=== PATIENT | male | born 2000 ===

== ENCOUNTER 2022-10-31 01:10 | Emergency (ER) | payer OTHER ==
[2022-10-31 01:57] LABS: Potassium 3.4 mEq/L (3.5-5.1)
[2022-10-31 01:58] LABS: Absolute Lymphocytes (CBC) 1.4 K/uL (0.7-4.9); Hematocrit 44.9 % (39.6-49.0); Lymphocytes % 9.5 % (15.3-44.8); MCV 87.7 fL (80-100); MPV 8.1 fL (7.6-11.3); Platelets 267 thou/uL (152-406); RBC Red Blood Cell Count 5.11 M/uL (4.33-5.43)
[2022-10-31 02:00] LABS: Protime INR 1.19
[2022-10-31] MEDS ORDERED: NA CHLORIDE 0.9% 1,000 ML ONE (02:47)
[2022-10-31] MEDS ORDERED: CEFAZOLIN SODIUM 1 GM/VIAL ONE (02:48)
[2022-10-31] MEDS ORDERED: NA CHLORIDE 0.9% 100 ML ONE (02:49)
[2022-10-31] MEDS ORDERED: MORPHINE 4 MG/ML SYR ONE ×3 (02:49→08:20)
[2022-10-31] MEDS ORDERED: KETOROLAC 30 MG/ML INJ ONE (02:49)
[2022-10-31] MEDS ORDERED: ONDANSETRON 4 MG/2 ML VIAL ONE (02:49)
--- NOTE | 2022-10-31 04:24 | EDPHYS ---
Physician Documentation [facility] Name: Nirmal Guan Age: 22 yrs Sex: Male : 2000 Arrival Date: 10/31/2022 Time: 01:10 Bed 3 Private MD: ED Physician Krunal Coello HPI: 10/31 01:17 This 22 yrs old [place] Male presents to ER via Unassigned with complaints of left sp4 facial injury . 04:07 , Patient is a 22-year-old inmate who presents with escort from the halfway, [facility] sp4 unit, for acute facial injury. Patient states he was heard at 6 PM. Patient states that he fell down onto the floor causing injury to his left side of the face with now left mandibular area swelling. Patient reported positive loss of consciousness with his injury. . Historical: - Allergies: 01:34 No Known Allergies; kl - Home Meds: :34 None [Active]; kl - PMHx: 03:01 None; kl - PSHx: :34 None; kl - Immunization history:: Adult Immunizations up to date. - Social history:: Smoking status: Patient denies any tobacco usage or history of. - Family history:: not pertinent. ROS: 04:07 Constitutional: Negative for fever, chills, and weight loss, ENT: Positive left-sided sp4 facial injury, positive left-sided facial swelling, positive fall and facial contusion 04:07 All other systems are negative. Exam: 04:07 Constitutional: This is a well developed, well nourished patient who is awake, alert, sp4 and in no acute distress. Head/Face: Normocephalic, signs of facial contusion and mandibular injury left side left angle of the mandible. Significant left lower facial swelling and associated hematoma. Eyes: Pupils equal round and reactive to light, extra-ocular motions intact. Lids and lashes normal. Conjunctiva and sclera are not injected. Cornea within normal limits. Periorbital areas with no swelling, redness, or edema. ENT: Nares patent. No nasal discharge, no septal abnormalities noted. Tympanic membranes are normal and external auditory canals are clear. Positive trismus, positive left sided mandibular swelling, difficulty opening mouth, no oral bleeding, no oral ulcers, no dental avulsion. Neck: Trachea midline, no thyromegaly or masses palpated, and no cervical lymphadenopathy. Supple, full range of motion without nuchal rigidity, or vertebral point tenderness. Chest/axilla: Normal chest wall appearance and motion. Nontender with no deformity. No lesions are appreciated. Cardiovascular: Regular rate and rhythm with a normal S1 and S2. No gallops, murmurs, or rubs. Normal PMI, no JVD. No pulse deficits. Respiratory: Lungs have equal breath sounds bilaterally, clear to auscultation and percussion. No rales, rhonchi or wheezes noted. No increased work of breathing, no retractions or nasal flaring. Abdomen/GI: Soft, non-tender, with normal bowel sounds. No distension or tympany. No guarding or rebound. No evidence of tenderness throughout. Back: No spinal tenderness. No costovertebral tenderness. Skin: Warm, dry with normal turgor. Normal color with no rashes, no lesions, and no evidence of cellulitis. MS/ Extremity: Pulses equal, no cyanosis. Neurovascular intact. Full, normal range of motion. Neuro: Awake and alert, GCS 15, oriented to person, place, time, and situation. Cranial nerves II-XII grossly intact. Motor strength 5/5 in all extremities. Sensory grossly intact. Psych: Awake, alert, with orientation to person, place and time. Behavior, mood, and affect are within normal limits Vital Signs: 02:49 BP 154 / 93; Pulse 78; Resp 16; Pulse Ox 100% on R/A; kl 03:01 BP 135 / 87; kl 03:02 Weight 79.38 kg (M); Height 5 ft. 7 in. ; kl 05:17 BP 138 / 85; Pulse 71; Resp 18; Pulse Ox 98% on R/A; kl 06:11 Temp 98.2; kl 06:33 BP 123 / 78; Pulse 70; Resp 16; Pulse Ox 99% on R/A; kl 07:45 BP 144 / 88; Pulse 72; Resp 18; Temp 97.2; Pulse Ox 98% on R/A; ph 03:02 Body Mass Index 27.41 (79.38 kg, 170.18 cm) kl MDM: 02:59 Patient medically screened. sp4 03:45 ED course: C spine - EXAM DESCRIPTION: C Spine Single View CLINICAL HISTORY: PAIN sp4 TECHNIQUE: 1 views of the cervical spine were submitted. COMPARISON: None available for comparison FINDINGS: Vertebra: No evidence of acute cervical spine fracture or malalignment Disc spaces: Well-maintained Prevertebral soft tissues: Unremarkable IMPRESSION: No evidence of acute cervical spine pathology on the single lateral view obtained.. ED course: CT reports - IMPRESSION: No evidence for acute hemorrhage, infarct or mass effect. No evidence for acute fracture or subluxation of the cervical spine. Incidentally noted the presence of a fracture involving the anterior right side of the mandible as well as the left mandibular angle with associated gas/air along the left client solutions manager space within the area of fracture. . ED course: CT head / C spine - FINDINGS: Multiple transaxial tomograms of the brain were obtained from the base of the skull to the vertex without contrast. 2-D multiplanar reformats and the coronal and sagittal plane were performed and reviewed. Multiple axial CT images through the cervical spine were obtained at 2 mm slice thickness at 2 mm interval reconstruction. In addition 2-D multiplanar reformats and the sagittal coronal plane were performed and reviewed. This exam was performed according to our departmental dose-optimization protocol, which includes automated exposure control, adjustment of the mA and/or kV according to patient size and/or use of iterative reconstruction technique. CT head: Brain parenchyma as well as the hood and white matter differentiation demonstrate to be unremarkable. There is no midline shift and/or mass effect. There is no evidence for acute hemorrhage. There are no focal areas of hypodensities. Lateral ventricles and cisterns displace normal appearance. No intra or extra axial fluid collections were seen. The calvarium is intact with no evidence for fracture. The visualized portions of the paranasal sinuses and orbits demonstrate to be clear. CT C-spine: The alignment, vertebral body heights, and disc spaces are normal. There is no evidence of fracture or subluxation. There are no significant degenerative changes. The spinal canal demonstrate no evidence for significant stenosis. Neural foramina demonstrate to be unremarkable. The uncovertebral joints demonstrate to be normal. There is no prevertebral soft tissue swelling. Sagittal coronal reformatted images demonstrate no subluxation or bony abnormalities. Incidentally is noted the presence of a fracture involving the anterior right side of the mandible as well as the left mandibular angle with associated gas/air along the left client solutions manager space within the area of fracture. IMPRESSION: No evidence for acute hemorrhage, infarct or mass effect. No evidence for acute fracture or subluxation of the cervical spine. Incidentally noted the presence of a fracture involving the anterior right side of the mandible as well as the left mandibular angle with associated gas/air along the left client solutions manager space within the area of fracture.. ED course: CT facial bones - FINDINGS: There is acute nondisplaced fracture anterior right side mandible as well as left mandibular angle fracture with associated to adjacent gas-air along the left client solutions manager space. There is associated soft tissue swelling. There is a nondisplaced bilateral nasal bone fracture. The temporomandibular joint, zygomatic bones, orbital fernandez, paranasal sinuses demonstrate to be within normal limits. The globe, intraconal elements and extraconal elements demonstrate to be unremarkable. Superior medial and inferior turbinates are grossly unremarkable. Nasopharynx and oropharynx demonstrate clear. No focal masses were demonstrated. The rest of the soft tissue and bony structures are grossly unremarkable. IMPRESSION: Acute nondisplaced fracture anterior right side mandible as well as left mandibular angle fracture with associated to adjacent gas-air along the left client solutions manager space. Nondisplaced nasal bone fracture. . 04:07 Differential Diagnosis altered mental status, Concussion, closed head injury, facial sp4 fractures, nasal fractures, mandibular fractures, [place] injury. Data reviewed: vital signs, nurses notes, EMS record, lab test result(s), radiologic studies, CT scan, plain films. Consideration of Admission/Observation Escalation of care including admission/observation considered. Management of patient was discussed with the following: Glass Inspector: OMFS. ED course: CT revealed nondisplaced fracture right anterior mandible as well as left mandibular angle fracture with soft tissue swelling and air in the soft tissues. Also nondisplaced bilateral nasal bone fractures. Complex mandibular fracture requires OMFS attention. Will discuss patient with OMFS at [facility] for possible transfer.. . 05:52 ED course: Patient was discussed with OMFS Dr. Capone who has accepted patient for sp4 evaluation.. 10/31 01:18 Order name: Basic Metabolic Panel; Complete Time: 03:45 sp4 10/31 01:18 Order name: CBC with Diff; Complete Time: 03:45 sp4 10/31 01:18 Order name: Type And Screen; Complete Time: 05:50 sp4 08/15 01:22 Order name: PT-INR; Complete Time: 03:45 sp4 10/31 01:18 Order name: XRAY C Spine Single View sp4 10/31 01:21 Order name: CT Head C Spine sp4 10/31 01:21 Order name: CT Facial Bones W/ Con \T\ Mpr sp4 10/31 01:18 Order name: Labs collected and sent; Complete Time: 08:01 sp4 10/31 01:22 Order name: Saline Lock; Complete Time: 02:03 sp4 Administered Medications: 02:48 Drug: NS 0.9% IV 1000 ml Route: IV; Rate: 1 bolus; Site: left forearm; kl 02:48 Drug: Ondansetron IVP 4 mg Route: IVP; Site: left forearm; kl 05:18 Follow up: Response: No adverse reaction kl 02:48 Drug: ceFAZolin IVPB 1 grams Volume: 50 ml; Route: IVPB; Infused Over: 30 mins; Site: kl left forearm; 02:48 Not Given (up to datee): Tetanus-Diphtheria Toxoid IM Adult 0.5 ml IM once; Provide kl Vaccine Information Statement (VIS). 02:49 Drug: Ketorolac IVP 30 mg Route: IVP; Site: left forearm; kl 05:18 Follow up: Response: No adverse reaction kl 02:49 Drug: morphine IVP or IV 4 mg Route: IVP; Infused Over: 4 mins; Site: left forearm; kl 05:18 Follow up: Response: No adverse reaction kl 04:48 CANCELLED (Duplicate Order): morphine IVP or IV 4 mg IVP once over 4 mins kl 04:50 Drug: morphine IVP or IV 4 mg Route: IVP; Infused Over: 4 mins; Site: left forearm; kl 05:17 Follow up: Response: No adverse reaction; Marked relief of symptoms kl 08:13 Drug: morphine IVP or IV 4 mg Route: IVP; Infused Over: 4 mins; Site: left forearm; ph 08:14 Follow up: Response: No adverse reaction; RASS: Drowsy (-1) ph Disposition Summary: 10/31/22 04:24 Transfer Ordered Transfer Location: [facility] sp4 Reason: Higher level of care sp4 Condition: Fair sp4 Problem: new sp4 Symptoms: are unchanged sp4 Accepting Physician: JENNA at [facility] , Dr. Capone (10/31/22 08:15) ph Diagnosis - Fracture of mandible sp4 - Fracture of nasal bones sp4 - Acute right anterior mandible fracture, acute left mandibular angle fracture, sp4 bilateral nondisplaced nasal bone fractures, facial injury with concussion Forms: - Medication Reconciliation Form sp4 - SBAR form sp4 Signatures: Dispatcher [employer] EDMS Tiki Cross RN RN kl Waters, Shelly, TOP LIFT TRIMMER-C TOP LIFT TRIMMER-Ryanw Lala Barraza RN RN Krunal Coello MD MD sp4 Corrections: (The following items were deleted from the chart) 04:48 04:48 morphine IVP or IV 4 mg IVP once over 4 mins ordered. ceferino de la vega 05:53 04:24 OMFS at [facility] sp4 sp4 08:15 05:53 [facility]FS at [facility] , Dr. Capone sp4 ph
--- NOTE | 2022-10-31 04:24 | ER ---
Nurse's Notes [facility] Name: Nirmal Guan Age: 22 yrs Sex: Male : 2000 Arrival Date: 10/31/2022 Time: 01:10 Bed 3 Private MD: Diagnosis: Fracture of mandible;Fracture of nasal bones;Acute right anterior mandible fracture, acute left mandibular angle fracture, bilateral nondisplaced nasal bone fractures, facial injury with concussion Presentation: 10/31 01:30 Chief complaint: Patient states: left jaw pain s/p fall. Coronavirus screen: Vaccine kl status: Patient reports receiving the 2nd dose of the covid vaccine. Ebola Screen: Patient negative for fever greater than or equal to 101.5 degrees Fahrenheit, and additional compatible Ebola Virus Disease symptoms. Initial Sepsis Screen: Does the patient meet any 2 criteria? No. Patient's initial sepsis screen is negative. Does the patient have a suspected source of infection? No. Patient's initial sepsis screen is negative. Risk Assessment: Do you want to hurt yourself or someone else? Patient reports no desire to harm self or others. 01:30 Method Of Arrival: Law Enforcement: [place] [employer] Corrections 01:30 Acuity: BELA 3 kl Historical: - Allergies: :34 No Known Allergies; kl - Home Meds: :34 None [Active]; kl - PMHx: 03:01 None; kl - PSHx: 01:34 None; kl - Immunization history:: Adult Immunizations up to date. - Social history:: Smoking status: Patient denies any tobacco usage or history of. - Family history:: not pertinent. Screenin:34 [facility] ED Fall Risk Assessment (Adult) History of falling in the last 3 months, kl including since admission Yes- single mechanical fall (1 pt) Confusion or Disorientation No (0 pts) Intoxicated or Sedated No (0 pts) Impaired Gait No (0 pts) Mobility Assist Device Used No (0 pt) Altered Elimination No (0 pt) Score/Fall Risk Level 0 - 2 = Low Risk Oriented to surroundings, Maintained a safe environment. Abuse screen: Denies threats or abuse. Nutritional screening: No deficits noted. Tuberculosis screening: No symptoms or risk factors identified. Assessment: :15 General: Appears uncomfortable, Behavior is calm, cooperative. Pain: Complains of pain kl in left jaw Pain currently is 7 out of 10 on a pain scale. Quality of pain is described as aching, dull, Pain began Is. Neuro: No deficits noted. Cardiovascular: No deficits noted. Respiratory: No deficits noted. GI: No deficits noted. No signs and/or symptoms were reported involving the gastrointestinal system. : No deficits noted. No signs and/or symptoms were reported regarding the genitourinary system. EENT: Musculoskeletal: Swelling present in left jaw teeth misaligned. 01:35 Reassessment: pt reports fell and possible LOC no other injuries noted. kl 02:49 Reassessment: Patient appears in no apparent distress at this time. Patient and/or kl family updated on plan of care and expected duration. Pain level reassessed. Patient is alert, oriented x 3, equal unlabored respirations, skin warm/dry/pink. 07:16 Reassessment: Patient appears in no apparent distress at this time. No changes from ko1 previously documented assessment. Patient and/or family updated on plan of care and expected duration. Pain level reassessed. Vital Signs: 02:49 BP 154 / 93; Pulse 78; Resp 16; Pulse Ox 100% on R/A; kl 03:01 BP 135 / 87; kl 03:02 Weight 79.38 kg (M); Height 5 ft. 7 in. ; kl 05:17 BP 138 / 85; Pulse 71; Resp 18; Pulse Ox 98% on R/A; kl 06:11 Temp 98.2; kl 06:33 BP 123 / 78; Pulse 70; Resp 16; Pulse Ox 99% on R/A; kl 07:45 BP 144 / 88; Pulse 72; Resp 18; Temp 97.2; Pulse Ox 98% on R/A; ph 03:02 Body Mass Index 27.41 (79.38 kg, 170.18 cm) ED Course: 01:13 Patient arrived in ED. rv1 01:17 Krunal Coello MD is Attending Physician. sp4 01:35 Patient has correct armband on for positive identification. Bed in low position. Side kl rails up X2. 01:35 Inserted saline lock: 20 gauge in left forearm, using aseptic technique. Blood kl collected. 01:43 XRAY C Spine Single View In Process Unspecified. EDMS 02:00 CT Head C Spine In Process Unspecified. EDMS 02:01 CT Facial Bones W/ Con \T\ Mpr In Process Unspecified. EDMS 04:47 Initiated transfer with Kyrie at [facility]. rv1 05:17 No apparent distress. Resting quietly. Appears to be sleeping. kl 05:55 Pt accepted to [facility] by Dr. Hammond. rv1 06:34 Triage completed. kl 06:35 Komal from [facility] transportation called and gave ETA for [facility] 1 hour and 30 rv1 minutes. 07:01 Yohana Hartmann, RN is Primary Nurse. ko1 07:15 Provided Education on: NA. ko1 07:15 No provider procedures requiring assistance completed. ko1 08:13 Arm band placed on. ph 08:14 Patient transferred, IV remains in place. ph Administered Medications: 02:48 Drug: NS 0.9% IV 1000 ml Route: IV; Rate: 1 bolus; Site: left forearm; kl 02:48 Drug: Ondansetron IVP 4 mg Route: IVP; Site: left forearm; kl 05:18 Follow up: Response: No adverse reaction kl 02:48 Drug: ceFAZolin IVPB 1 grams Volume: 50 ml; Route: IVPB; Infused Over: 30 mins; Site: kl left forearm; 02:48 Not Given (up to datee): Tetanus-Diphtheria Toxoid IM Adult 0.5 ml IM once; Provide kl Vaccine Information Statement (VIS). 02:49 Drug: Ketorolac IVP 30 mg Route: IVP; Site: left forearm; kl 05:18 Follow up: Response: No adverse reaction kl 02:49 Drug: morphine IVP or IV 4 mg Route: IVP; Infused Over: 4 mins; Site: left forearm; kl 05:18 Follow up: Response: No adverse reaction kl 04:48 CANCELLED (Duplicate Order): morphine IVP or IV 4 mg IVP once over 4 mins kl 04:50 Drug: morphine IVP or IV 4 mg Route: IVP; Infused Over: 4 mins; Site: left forearm; kl 05:17 Follow up: Response: No adverse reaction; Marked relief of symptoms kl 08:13 Drug: morphine IVP or IV 4 mg Route: IVP; Infused Over: 4 mins; Site: left forearm; ph 08:14 Follow up: Response: No adverse reaction; RASS: Drowsy (-1) ph Medication: 07:15 VIS not applicable for this client. ko1 Outcome: 04:24 ER care complete, transfer ordered by . sp4 08:13 Transferred by ground EMS [facility]. ph 08:13 Transferred to [facility], X-rays sent w/ patient. 08:13 Condition: stable 08:13 Instructed on the need for transfer. 08:15 Patient left the ED. ph Signatures: Dispatcher [employer] EDTiki Arzate RN Lala Fong RN RN ph Oliver, Kathy, RN RN Mary Jane Fatima Sergey, MD MD sp4
[2022-10-31 08:43] VITALS: BP 144/88; TEMP 97.2; O2SAT 98
--- NOTE | 2022-10-31 11:52 | RAD REPORT ---
EXAM DESCRIPTION: CT - Facial Bones W Con Mpr - 10/31/2022 6:44 am CLINICAL HISTORY: 22 years, Male, facial injury COMPARISON: None. TECHNIQUE: Multiple transaxial tomograms of the maxillofacial bones were performed utilizing 2 mm sl ice thickness at 2 mm interval reconstruction. In addition 2-D multiplanar reconstructions in the cor onal and sagittal plane were performed and reviewed. This exam was performed according to our departmental dose-optimization protocol, which includes auto mated exposure control, adjustment of the mA and/or kV according to patient size and/or use of iterat mica reconstruction technique. FINDINGS: There is acute nondisplaced fracture anterior right side mandible as well as left mandibul ar angle fracture with associated to adjacent gas-air along the left integration software developer space. There is assoc iated soft tissue swelling. There is a nondisplaced bilateral nasal bone fracture. The temporomandibular joint, zygomatic bones, orbital fernandez, paranasal sinuses demonstrate to be with in normal limits. The globe, intraconal elements and extraconal elements demonstrate to be unremarkable. Superior medial and inferior turbinates are grossly unremarkable. Nasopharynx and oropharynx demons trate clear. No focal masses were demonstrated. The rest of the soft tissue and bony structures a re grossly unremarkable. IMPRESSION: Acute nondisplaced fracture anterior right side mandible as well as left mandibular angl e fracture with associated to adjacent gas-air along the left integration software developer space. Nondisplaced nasal bone fracture. Electronically signed by: Darci Michel MD 10/31/2022 3:08 AM CDT Due to temporary technical issues with the PACS/Fluency reporting system, reports are being signed by the in house radiologists without review as a courtesy to insure prompt reporting. The interpreting radiologist is fully responsible for the content of the report.
--- NOTE | 2022-10-31 12:09 | RAD REPORT ---
EXAM DESCRIPTION: CT - Head C Spine Mpr Wo Con - 10/31/2022 6:44 am CLINICAL HISTORY: 22 years, Male, facial trauma COMPARISON: None FINDINGS: Multiple transaxial tomograms of the brain were obtained from the base of the skull to the vertex without contrast. 2-D multiplanar reformats and the coronal and sagittal plane were performed and reviewed. Multiple axial CT images through the cervical spine were obtained at 2 mm slice thickness at 2 mm int erval reconstruction. In addition 2-D multiplanar reformats and the sagittal coronal plane were perfo rmed and reviewed. This exam was performed according to our departmental dose-optimization protocol, which includes auto mated exposure control, adjustment of the mA and/or kV according to patient size and/or use of iterat mica reconstruction technique. CT head: Brain parenchyma as well as the hood and white matter differentiation demonstrate to be unre markable. There is no midline shift and/or mass effect. There is no evidence for acute hemorrhage. Th ere are no focal areas of hypodensities. Lateral ventricles and cisterns displace normal appearance. No intra or extra axial fluid collections were seen. The calvarium is intact with no evidence for f racture. The visualized portions of the paranasal sinuses and orbits demonstrate to be clear. CT C-spine: The alignment, vertebral body heights, and disc spaces are normal. There is no evidence of fracture or subluxation. There are no significant degenerative changes. The spinal canal demonstr ate no evidence for significant stenosis. Neural foramina demonstrate to be unremarkable. The uncover tebral joints demonstrate to be normal. There is no prevertebral soft tissue swelling. Sagittal cor onal reformatted images demonstrate no subluxation or bony abnormalities. Incidentally is noted the presence of a fracture involving the anterior right side of the mandible as well as the left mandibular angle with associated gas/air along the left dental scheduling coordinator space within the area of fracture. IMPRESSION: No evidence for acute hemorrhage, infarct or mass effect. No evidence for acute fracture or subluxation of the cervical spine. Incidentally noted the presence of a fracture involving the anterior right side of the mandible as we ll as the left mandibular angle with associated gas/air along the left dental scheduling coordinator space within the ar ea of fracture. Electronically signed by: Darci Michel MD 10/31/2022 3:05 AM CDT Due to temporary technical issues with the PACS/Fluency reporting system, reports are being signed by the in house radiologists without review as a courtesy to insure prompt reporting. The interpreting radiologist is fully responsible for the content of the report.
--- NOTE | 2022-10-31 12:27 | RAD REPORT ---
EXAM DESCRIPTION: RAD - C Spine Single View - 10/31/2022 1:41 am CLINICAL HISTORY: PAIN TECHNIQUE: 1 views of the cervical spine were submitted. COMPARISON: None available for comparison FINDINGS: Vertebra: No evidence of acute cervical spine fracture or malalignment Disc spaces: Well-maintained Prevertebral soft tissues: Unremarkable IMPRESSION: No evidence of acute cervical spine pathology on the single lateral view obtained. Electronically signed by: Julio C Soria MD 10/31/2022 2:38 AM CDT Due to temporary technical issues with the PACS/Fluency reporting system, reports are being signed by the in house radiologists without review as a courtesy to insure prompt reporting. The interpreting radiologist is fully responsible for the content of the report.
== END 2022-10-31 08:15 | disposition short-term general hospital (02) ==
LOC: ER 01:10
DX: S02.652A Fracture of angle of left mandible, initial encounter for closed fracture (principal); S06.0X0A Concussion without loss of consciousness, initial encounter; S02.651A Fracture of angle of right mandible, initial encounter for closed fracture; S02.2XXA Fracture of nasal bones, initial encounter for closed fracture
CPT/HCPCS: 85025; 80048; 36415; 86900; 86850; 85610; 86901; 70450; 72125; 70487; 76377; 72020; 96375; 96374; 99285; Q9967; J2405; J0690; J7030